=== PATIENT | female | born 1995 | race African-American/Black ===

== ENCOUNTER 2020-07-12 00:36 | Emergency (ER) | payer MEDICAID, OTHER ==
[~2020-07-12] VITALS: Ht 162.6 cm; Wt 52.2 kg
[2020-07-12 02:36] LABS: Basophils # (auto) 0 10 ^3/uL (0-0.2); Basophils % (auto) 0.3 % (0.0-2.0); Eosinophils # (auto) 0.1 10 ^3/uL (0-0.8); Eosinophils % (auto) 1.3 % (0.0-7.0); Hematocrit 36.9 % (36.0-46.0); Hemoglobin 12.4 g/dL (12.2-16.2); Lymphocytes # (auto) 3.3 10 ^3/uL (0.4-5.4); Mean Corpuscular Hemoglobin 27.8 pg (28.0-32.0); Mean Corpuscular Hgb Conc. 33.6 g/dL (32.0-36.0); Mean Corpuscular Volume 82.9 fL (80.0-100.0); Monocytes # (auto) 0.5 10 ^3/uL (0-1.3); Monocytes % (auto) 6.9 % (0.0-12.0); Neutrophils # (auto) 3.7 10 ^3/uL (1.6-8.6); Neutrophils % (auto) 48.5 % (37.0-80.0); Nucleated Red Blood Cells % 0.1 %; Platelet Count (auto) 232 10^3/uL (140-450); Red Blood Cells 4.46 10^6/uL (4.0-5.20); Red Cell Distribution Width 13.1 % (11.8-14.3); White Blood Cell 7.6 10^3/uL (4.4-10.8)
[2020-07-12 02:42] LABS: Urine Bacteria FEW /hpf (None Seen); Urine Blood Negative /uL (Negative); Urine Mucus FEW (None Seen); Urine Specific Gravity 1.029 (1.001-1.035); Urine WBC 1 /hpf (0 - 5)
[2020-07-12 02:57] LABS: Potassium 3.9 mmol/L (3.5-5.1)
[2020-07-12 03:01] LABS: Albumin 4.1 g/dL (3.4-5.0); BUN/Creatinine Ratio 21.2; Calcium 8.7 mg/dL (8.5-10.1)
[2020-07-12 03:06] LABS: Alcohol, Urine < 3.0 mg/dL (0-10); Amphetamine Screen, Urine NEGATIVE (NEGATIVE); Barbiturate Scree,Urine NEGATIVE (NEGATIVE); Benzodiazephine Screen, Urine NEGATIVE (NEGATIVE); Cannabinoid Screen, Urine NEGATIVE (NEGATIVE); Cocaine Screen, Urine NEGATIVE (NEGATIVE)
[2020-07-12 03:14] LABS: Bilirubin, Total 0.2 mg/dL (0.2-1.0); Total Protein 7.6 g/dL (6.4-8.2)
[2020-07-12 03:15] LABS: Opiate Scree,Urine POSITIVE (NEGATIVE); Phencyclidine Screen, Urine NEGATIVE (NEGATIVE)
[2020-07-12 05:54] VITALS: BP 119/77
== END 2020-07-12 07:03 | disposition home or self-care (01) ==
LOC: ER 00:36
DX: K04.7 Periapical abscess without sinus (principal); R51.9 Headache, unspecified; K01.1 Impacted teeth
CPT/HCPCS: 36415; 70450; 70486; 80053; 80307; 81001; 83605; 84702; 85025; 93005

== ENCOUNTER 2024-05-22 05:57 | Emergency (ER) | payer MEDICAID ==
[~2024-05-22] VITALS: Ht 162.6 cm; Wt 77.8 kg
[2024-05-22 07:40] VITALS: BP 130/78; PULSE 100; RESP 18; TEMP 98.6; O2SAT 97
--- NOTE | 2024-05-22 07:48 | ED.PDOC ---
History of Present Illness HPI Comments A 29 YEAR OLD FEMALE PRESENTS TO THE ED WITH CHIEF COMPLAINT OF JAW PAIN. PATIENT REPORTS THAT SHE HAS BEEN EXPERIENCING RIGHT LOWER JAW PAIN FOR THE PAST 6 YEARS. PATIENT RELAYS THAT SHE HAD BEEN TOLD IN THE PAST SHE HAD A DENTAL INFECTION AND WAS GIVEN ANTIBIOTICS FOR IT, BUT NO RELIEF HAS BEEN NOTED FROM THEM. PATIENT STATES THAT SHE ALSO RECENTLY GOTTEN A COLD SORE A FEW DAYS AGO AFTER ORAL SEX. PATIENT DENIES ANY EAR ACHE, HEADACHE, TOOTH PAIN, DIZZINESS, OR THROAT PAIN. NO OTHER SYMPTOMS REPORTED AT THIS TIME OF CARE. Chief Complaint: Jaw Pain Time Seen by MD: 07:04 Primary Care Provider: NONE Reviewed Notes: Nurses Notes, Medications, Allergies Allergies: Coded Allergies: NO KNOWN ALLERGIES (Unverified , 12/19/13) Home Meds Active Scripts Acyclovir (ZOVIRAX TABLET) 400 Mg Tb, 1 TAB PO TID, #21 TAB Prov:ALYSSA BOJORQUEZ 05/22/24 Ibuprofen (Ibuprofen) 800 Mg Tab, 1 TAB PO TID, #30 TAB Prov:ALYSSA BOJORQUEZ 05/22/24 Information Source: Patient Mode of Arrival: Ambulatory Severity: Mild Timing: Other (5 YEARS) Duration: Intermittent Prehospital treatment: None Medication Refill: For: Other (RIGHT SIDE JAW PAIN AND LIPS SORE ) Past Medical History Past Medical History (Other): CHRONIC TMJ PAIN Surgical History: Denies all surgeries CHILD AND ADOLESCENT PSYCHIATRIST History: No Pertinent CHILD AND ADOLESCENT PSYCHIATRIST History Family History Family History: Unknown Social History Smoker: Non-Smoker Alcohol: Denies ETOH Use Drugs: Marijuana Lives In: Home Constitutional: denies: chills, diaphoresis, fatigue, fever, malaise, sweats, weakness, others EENTM: reports: others (RIGHT SIDE JAW PAIN); denies: blurred vision, double vision, ear bleeding, ear discharge, ear drainage, ear pain, ear ringing, eye pain, eye redness, hearing loss, mouth pain, mouth swelling, nasal discharge, nose bleeding, nose congestion, nose pain, photophobia, tearing, throat pain, throat swelling, voice changes Respiratory: denies: cough, hemoptysis, orthopnea, SOB at rest, shortness of breath, SOB with excertion, stridor, wheezing, others Cardiovascular: denies: chest pain, dizzy spells, diaphoresis, Dyspnea on exertion, edema, irregular heart beat, left arm pain, lightheadedness, palpitations, PND, syncope, others Gastrointestinal: denies: abdomen distended, abdominal pain, blood streaked bowels, constipated, diarrhea, dysphagia, difficulty swallowing, hematemesis, melena, nausea, poor appetite, poor fluid intake, rectal bleeding, rectal pain, vomiting, others Genitourinary: denies: abnormal vagina bleeding, burning, dyspareunia, dysuria, flank pain, frequency, hematuria, incontinence, pain, , vagina discharge, urgency, others Neurological: denies: dizziness, fainting, headache, left sided numbness, left sided weakness, numbness, paresthesia, pre-existing deficit, right sided numbness, right sided weakness, seizure, speech problems, tingling, tremors, weakness, others Musculoskeletal: denies: back pain, gout, joint pain, joint swelling, muscle pain, muscle stiffness, neck pain, others Integumetry: reports: others (LIPS SORE ); denies: bruises, change in color, change in hair/nails, dryness, laceration, lesions, lumps, rash, wounds Allergic/Immunocompromised: denies: Difficulty Healing, Frequent Infections, Hives, Itching, others Hematologic/Lymphatic: denies: anemia, blood clots, easy bleeding, easy bruising, swollen glands, others Endocrine: denies: excessive hunger, excessive sweating, excessive thirst, excessive urination, flushing, intolerance to cold, intolerance to heat, unexplained weight gain, unexplained weight loss, others Psychiatric: denies: anxiety, bipolar disorder, depression, hopeless, panic disorder, schizophrenia, sleepless, suicidal, others All Other Systems: Reviewed and Negative Physical Exam General Appearance: No Apparent Distress, Normal HEENT: Normal ENT Inspection, PERRL/EOMI, Pharynx Normal, TMs Normal, Other (TENDERNESS ON RIGHT SIDE TMJ REGION, NO REDNESS, SWELLING AND DEFORMITY. NO ERYTHEMA AND SWELLING ON RIGHT SIDE UPPER AND LOWER GUM, NO DENTAL INFECTION. MILD COLD SORE ON LIPS. ) Neck: Full Range of Motion, Non-Tender, Normal, Normal Inspection Respiratory: Chest Non-Tender, Lungs Clear, No Accessory Muscle Use, No Respiratory Distress, Normal Breath Sounds Cardiovascular: No Edema, No JVD, No Murmur, No Gallop, Normal Peripheral Pulses, Regular Rate/Rhythm Breast Exam: Deferred Gastrointestinal: No Organomegaly, Non Tender, No Pulsatile Mass, Normal Bowel Sounds, Soft Genitalia: Deferred Pelvic: Deferred Rectal: Deferred Extremities: No calf tenderness, Normal capillary refill, Normal inspection, Normal range of motion, Non-tender, No pedal edema Musculoskeletal : Apperance: Normal Neurologic: Alert, manager statistical programming II-XII nml as Tested, No Motor Deficits, Normal Affect, Normal Mood, No Sensory Deficits Cerebellar Function: Normal Reflexes: Normal Skin: Dry, Normal Color, Warm, Other (A FEW COLD SORE ON LIPS, NO SWELLING AND DRAINAGE. ) Peripheral Pulses: 2+ carotid (R), 2+ carotid (L) Lymphatic: No Adenopathy Was a procedure done? Was a procedure done?: No Differential Dx Considerations may include: CHRONIC RIGHT SIDE JAW PAIN, HX OF TMJ, HERPES VIRAL INFECTION X-Ray, Labs, Meds, VS Vital Signs Date Time Temp Pulse Resp B/P (MAP) Pulse Ox O2 Delivery O2 Flow Rate FiO2 05/22/24 07:40 100 18 97 Room Air 05/22/24 07:40 98.6 100 18 130/78 (95) 97 98.6 05/22/24 06:19 98.6 100 18 130/78 (95) 97 X-Ray, Labs, Meds, VS Comment EXTERNAL MEDICAL RECORDS REVIEWED: 07/12/20 FOR RT SIDED WEAKNESS INDEPENDENT HISTORIANS: [NONE] SOCIAL DETERMINANTS OF HEALTH: [NONE] LABS ORDERED: NONE REVIEWED AND INTERPRETED RESULTS: NONE IMAGING ORDERED: NONE TREATMENTS ORDERED: NONE PROCEDURES PERFORMED: NONE CRITICAL CARE TIME: NONE I HAVE DISCUSSED THE PATIENT WITH THE ATTENDING PHYSICIAN DR. GONSALES AND HE AGREES WITH THE PATIENT'S PLAN OF CARE AND DISPOSITION. BASED ON HISTORY OF PRESENT ILLNESS, AND PHYSICAL EXAM, PATIENT WILL BE DISCHARGED HOME. DISCUSSED PLAN FOR DISCHARGE HOME WITH RX. MEDICATION WARNINGS GIVEN. SHARED DECISION MAKING: DISCUSSED WITH PATIENT THAT THEIR WORKUP WAS NORMAL. PATIENT INSTRUCTED TO FOLLOW UP WITH PRIMARY CARE PROVIDER IN 1-2 DAYS FOR RE- EVALUATION OF SYMPTOMS. PATIENT VERBALIZES UNDERSTANDING TO RETURN TO ED FOR NEW OR WORSENING SYMPTOMS OR IF FOLLOW UP WITH PCP CANNOT BE OBTAINED. PATIENT FEELS COMFORTABLE GOING HOME AT THIS TIME. ALL QUESTIONS ADDRESSED AT TIME OF DISCHARGE. Time of 1ST Reevaluation: 08:03 Reevaluation 1ST: Unchanged Patient Education/Counseling: Diagnosis, Treatment, Need For Follow Up Family Education/Counseling: Diagnosis, Treatment, No Family Present Medical Screening: No EMC Exist At This Time Departure 1 Departure Time of Disposition: 08:03 Impression: Primary Impression: Herpes simplex type 1 infection Additional Impression: TMJ (temporomandibular joint disorder) Disposition: HOME / SELF CARE / HOMELESS Condition: Stable Additional Instructions: FOLLOW-UP WITH PCP IN 1 TO 2 DAYS. TAKE MEDICATIONS PRESCRIBED. RETURN TO ED FOR ANY NEW OR WORSENING SYMPTOMS. e-Prescriptions Acyclovir (ZOVIRAX TABLET) 400 Mg Tb 1 TAB PO TID, #21 TAB Prov: ALYSSA BOJORQUEZ 05/22/24 Ibuprofen (Ibuprofen) 800 Mg Tab 1 TAB PO TID, #30 TAB Prov: ALYSSA BOJORQUEZ 05/22/24 Discharged With: Self Critical Care Note Critical Care Time?: No Stability Stability form required: No Heart Score Heart Score: Heart Score Response (Comments) Value History N/A 0 EKG N/A 0 Age N/A 0 Risk Factors N/A 0 Troponin N/A 0 Total 0 I personally scribed for ALYSSA BOJORQUEZ ([email or web address]) on 05/22/24 at 07:48. Electronically submitted by Torres Wilson ([email or web address]). I personally scribed for ALYSSA BOJORQUEZ ([email or web address]) on 05/22/24 at 07:52. Electronically submitted by Torres Wilson ([email or web address]). I personally scribed for ALYSSA BOJORQUEZ ([email or web address]) on 05/22/24 at 07:55. Electronically submitted by Torres Wilson ([email or web address]). ALYSSA BOJORQUEZ May 22, 2024 07:48
[2024-05-22] MEDS ORDERED: IBUP-1456 PO (07:54)
[2024-05-22] MEDS ORDERED: ACYC400T16 PO (07:54)
== END 2024-05-22 08:04 | disposition home or self-care (01) ==
LOC: ER 05:57
DX: B00.9 Herpesviral infection, unspecified (principal); M26.601 Right temporomandibular joint disorder, unspecified; Z79.1 Long term (current) use of non-steroidal anti-inflammatories (NSAID); Z79.624 Long term (current) use of inhibitors of nucleotide synthesis; Z79.899 Other long term (current) drug therapy